=== PATIENT | female | born 1990 ===

== ENCOUNTER 2016-07-04 06:36 | Inpatient (IN) ==
[2016-07-04] MEDS ORDERED: MEPERIDINE 50 MG/1 ML VIAL IM PRN (07:43)
[2016-07-04] MEDS ORDERED: ONDANSETRON 4 MG/2 ML VIAL IV PRN (07:43)
[2016-07-04] MEDS ORDERED: LACTATED RINGERS 1,000 ML IV SCH (08:00)
[2016-07-04] MEDS ORDERED: OXYTOCIN/LR 20 UNIT/1,000 ML BAG IV SCH (08:00)
[2016-07-04 08:20] LABS: Basophils % 0.1 % (0.0-0.8); Eosinophils # 0.2 10*3/uL (0.0-0.87); Eosinophils % 1.5 % (0.00-10.9); Hematocrit 36.2 VOL% (35.7-47.0); Hemoglobin 11.4 GM/DL (12.0-16.0); Immature Granulocytes % 0.4 %; Immature Granulocytes Absolute 0.06 #; Lymphocytes # 2.6 10*3/uL (1.4-4.0); Lymphocytes % 18.5 % (21.3-54.2); Mean Corpuscular HGB Conc 31.5 GM/DL (32-36); Mean Corpuscular Hemoglobin 25 PG (27-34); Mean Corpuscular Volume 80.1 FL (87-102); Mean Platelet Volume 12.8 FL (9.6-12.0); Monocytes # 0.8 10*3/uL (0.11-0.8); Monocytes % 5.7 % (1.7-12.7); Neutrophils # 10.5 10*3/uL (1.4-7.4); Neutrophils % 73.8 % (38.7-73.9); Platelet Count 230 T/CUMM (130-400); Red Blood Count 4.52 MC/CUMM (3.8-5.5); Red Cell Distribution Width 14.6 % (9.3-17.3); White Blood Count 14.2 T/CUMM (4-12)
[2016-07-04 08:41] LABS: Alanine Aminotransferase 10 U/L (13-56); Albumin 2.7 G/DL (3.4-5.0); Alkaline Phosphatase 245 U/L (45-117); Aspartate Amino Transferase 13 U/L (0-37); Bilirubin,Total < 0.39 MG/DL (0.2-1.0); Blood Urea Nitrogen 5 MG/DL (7-18); Calcium 8.5 MG/DL (8.5-10.1); Glucose 74 MG/DL (74-106); Osmolality,Calculated 276.3 MOS/KG (273-304); Potassium 4.1 MMOL/L (3.5-5.1); Sodium 141 MMOL/L (136-145); Total Protein 6.4 G/DL (6.4-8.3)
--- NOTE | 2016-07-04 10:22 | OB/GYN History & Physical ---
History of Present Illness Chief complaint: Active Labor History of present illness: Ms. Matute is a 25 year old female who is a 5 para 4 labor. Her VINI is 07/12/2016 estimated gestational age of 38 and 6/7 weeks. She presents to the labor department in active labor. The risk and benefits have been thoroughly discussed with this patient and significant other, and plan of care has been discussed with Dr. Morrison, all parties are in agreement with plan. The patient received her care Damien Pearl in the [place] [facility]. She received routine care and her course was uneventful. labs: She is O+, rubella was immune, RPR is nonreactive, hepatitis B negative, HIV negative, and GBS culture negative. The patient has had 4 previous deliveries and the largest infant weighing 6 pounds and 3 ounces. She reported no complications with any of her Home Medications Medication Instructions Recorded Confirmed Type Multivitamin () [ 1 tablet PO DAILY 06/30/16 06/30/16 History Vitamin] Allergies Allergy/AdvReac Type Severity Reaction Status Date / Time No Known Allergies Allergy Verified 10/11/14 07:40 12 point system: reviewed and no additional remarkable complaints except as stated Medical,Surgical,& Family Hx - Medical History Medical History: noncontributory Reproductive: No history of: Ectopic , Complication - Surgical History Abdominal Surgeries: Surgical HX of: Appendectomy Reproductive Surgeries: Patient denies;: Gynecologic Surgery - Family History Family History: Reports;: Family Cancer (GRANDMOTHER, GRANDFATHER), Family Diabetes (UNCLE), Family Hypertension - Social History Smoking Status: Never smoker Frequency of Alcohol Use: None Type of Drug Use: None Marital Status: Single Lives With:: Significant Other Functional capacity: independent ambulation Exam CARPENTERS HELPER - Constitutional Vitals: Vital Signs Temp Pulse Resp BP Pulse Ox 07/04/16 07:58 97.6 F 66 18 137/82 99 General appearance: mild distress - Antepartum / Post Antpartum Exam Cervix -Dilatation: 5 cm Effacement: 70% Station: -1 Rupture: Intact Presentation: VTX Heart Rate: 140s Breast: bilateral: normal Abdomen obstetrics: Present: bowel sounds normal Vagina: Present: normal moisture Uterus exam: Present: enlarged Anus/Rectum: Present: normal perianal skin - Respiratory Respiratory exam: Present: clear to auscultation bilaterally - Cardiovascular Cardiovascular exam: Present: regular rate and rhythm - GI/Abdominal GI/Abdominal exam: Present: normal bowel sounds, soft - Extremities Exam Extremities exam: Present: normal inspection - Neurological Exam Neurological exam: Present: alert, oriented X3 - Psychiatric Psychiatric exam: Present: normal affect, normal mood - Skin Skin exam: Present: normal color, warm Assessment and Plan (1) Active labor at term Status: Acute Assessment and plan: Admit IV Fluids IV Pitocin per protocol Epidural if desired AROM Anticipate Current Visit: Yes Results - Labs CBC & BMP: 07/04/16 08:13 07/04/16 08:13
--- NOTE | 2016-07-04 11:11 | Event Note ---
HPI: Ms. Matute presented to the labor department in active labor. Risks and benefits were thoroughly discussed with the patient and significant other and plan of care was discussed with Dr. Morrison, all parties and plan. Stage I: The patient was admitted she received IV fluids and IV Pitocin per protocol. Artificial rupture membranes was performed with clear fluid noted. The patient progressed in labor with a CAT 1 tracing. She had an uneventful course of labor. Stage II: The patient was complete and complaining of depression strong desire to push. She pushed approximately 2 times after which time the infant's head was delivered. The mouth and nose was suctioned on the perineum. The remainder of the infant was delivered at 1104, a viable male was noted. Apgars were 9 at 1 minute and 9 at 5 minutes. The infant was placed on the mom' s abdomen for skin to skin bonding. weight was 7 pounds and 13 ounces. Cord pH was obtained and sent to the lab. Stage III: Spontaneous delivery of a Chapa placenta with a three-vessel cord noted. The placenta was further examined and appeared to be grossly intact. The vagina and cervix was inspected with no tears or lacerations noted. Estimated blood loss was approximately 120 mL. At the time of dictation mother and baby are both in stable condition.
[2016-07-04] MEDS ORDERED: DIPH/TET/ACEL PERT BOOSTER VACCINE 0.5 ML VIAL IM ONE (11:12)
[2016-07-04] MEDS ORDERED: RHO(D) IMMUNE GLOBULIN 300 MCG SYRINGE IM ONE (11:12)
[2016-07-04] MEDS ORDERED: HYDROCORTISONE 2.5% RECTAL CREAM 30 GM TUBE TOP PRN (11:12)
[2016-07-04] MEDS ORDERED: MEASLES/MUMPS/RUBELLA VACCINE 0.5 ML VIAL SUBCUT ONE (11:12)
[2016-07-04] MEDS ORDERED: WITCH HAZEL PADS 100/JAR TOP PRN (11:12)
[2016-07-04] MEDS ORDERED: OXYTOCIN/LR 20 UNIT/1,000 ML BAG IV ONE (11:12)
[2016-07-04] MEDS ORDERED: ACETAMINOPHEN 325 MG TABLET PO PRN (11:12)
[2016-07-04] MEDS ORDERED: BENZOCAINE 20%/MENTHOL 0.5% SPRAY 56 GM CAN TOP PRN (11:12)
[2016-07-04] MEDS ORDERED: BISACODYL 10 MG SUPP RECTAL PRN (11:12)
[2016-07-04] MEDS ORDERED: LANOLIN 50% CREAM 0.3 OZ TUBE TOP PRN (11:12)
[2016-07-04] MEDS ORDERED: ACETAMINOPHEN/CODEINE 300-30 MG TABLET PO PRN (11:13)
[2016-07-04] MEDS: oxyCODONE/ACETAMINOPHEN 5-325 MG TABLET PO PRN (11:30)
[2016-07-04] MEDS: DOCUSATE SODIUM 100 MG CAPSULE PO SCH (21:22)
[2016-07-05] MEDS: IBUPROFEN 800 MG TABLET PO PRN ×2 (01:15→14:35)
[2016-07-05] MEDS: oxyCODONE/ACETAMINOPHEN 5-325 MG TABLET PO PRN ×2 (01:15→14:35)
[2016-07-05 06:38] LABS: Basophils % 0.1 % (0.0-0.8); Eosinophils # 0.3 10*3/uL (0.0-0.87); Eosinophils % 1.9 % (0.00-10.9); Hematocrit 31.3 VOL% (35.7-47.0); Immature Granulocytes % 0.4 %; Immature Granulocytes Absolute 0.06 #; Lymphocytes # 3.3 10*3/uL (1.4-4.0); Lymphocytes % 21.6 % (21.3-54.2); Mean Corpuscular HGB Conc 31.9 GM/DL (32-36); Mean Corpuscular Hemoglobin 25 PG (27-34); Mean Corpuscular Volume 79.4 FL (87-102); Monocytes # 0.7 10*3/uL (0.11-0.8); Monocytes % 4.6 % (1.7-12.7); Neutrophils # 10.9 10*3/uL (1.4-7.4); Neutrophils % 71.4 % (38.7-73.9); Platelet Count 212 T/CUMM (130-400); Red Blood Count 3.94 MC/CUMM (3.8-5.5); Red Cell Distribution Width 14.7 % (9.3-17.3); White Blood Count 15.2 T/CUMM (4-12)
[2016-07-05] MEDS: DOCUSATE SODIUM 100 MG CAPSULE PO SCH ×2 (08:34→21:15)
--- NOTE | 2016-07-05 13:41 | OB/GYN Progress Note ---
Assessment and Plan (1) Active labor at term Status: Acute Assessment and plan: Admit IV Fluids IV Pitocin per protocol Epidural if desired AROM Anticipate Current Visit: Yes (2) Vaginal delivery Status: Acute Assessment and plan: Initiate routine orders. Current Visit: Yes CLIENT SUCCESS SPECIALIST - PN: Subj Interval history: Stable with no complaints. Bonding well with . Exam CLIENT SUCCESS SPECIALIST - Constitutional Vitals: Vital Signs Temp Pulse Resp BP Pulse Ox 07/05/16 11:56 97.0 F L 64 16 98/65 97 07/05/16 07:33 97.8 F 53 L 16 99/53 98 07/05/16 06:00 18 07/05/16 04:00 98.5 F 61 18 93/48 100 07/05/16 00:00 96.4 F L 63 20 105/70 96 07/04/16 22:00 20 07/04/16 19:45 98.5 F 70 20 107/60 98 07/04/16 16:40 66 18 109/63 98 07/04/16 15:40 69 18 108/60 98 07/04/16 15:10 65 18 102/56 98 07/04/16 14:40 97.1 F L 61 20 113/63 99 General appearance: no acute distress - Antepartum / Post Post Exam Breast: bilateral: normal Abdomen obstetrics: Present: bowel sounds normal Vulva: bilateral: normal Vagina: Present: normal moisture, discharge (light lochia rubra) Uterus exam: Present: enlarged (FF ML) Anus/Rectum: Present: normal perianal skin - Head Head exam: Present: normal inspection - Respiratory Respiratory exam: Present: clear to auscultation bilaterally - Cardiovascular Cardiovascular exam: Present: regular rate and rhythm - GI/Abdominal GI/Abdominal exam: Present: normal bowel sounds, soft - Extremities Exam Extremities exam: Present: normal inspection - Neurological Exam Neurological exam: Present: alert, oriented X3 - Psychiatric Psychiatric exam: Present: normal affect, normal mood - Skin Skin exam: Present: normal color, warm Results - Labs CBC & BMP: 07/05/16 06:21 07/04/16 08:13
--- NOTE | 2016-07-05 13:44 | Discharge Summary ---
Hospital Course - Hospital Course Hospital Course: Ms. Matute is a 25-year-old female who presented labor department in active labor. She subsequently delivered a viable with no complications. She is followed a normal course and she has not Weyl. She is born without difficulty. Her fundus is firm and midline. Her perineum is intact with no edema. Her vital signs lab values are stable. She is bonding well with her infant. Her perineum is intact with no edema. She will be discharged to home prescriptions for pain follow-up appointment in our office. Diagnosis - Discharge Diagnosis (1) Active labor at term Status: Acute (2) Vaginal delivery Status: Acute Specialty Discharge - Follow Up or Referrals Follow up with: Asael Morrison MD [Physician] - (Call Dr. Morrison' Office Friday07/08/16 to make a 6 week follow up appt.) Discharge Plan - Discharge Data Disposition: Disch To Home/Self Care Condition at Discharge: Stable Discharge Diet: advance to your usual diet, regular diet Activity: resume usual activities as tolerated Hygiene: may shower Weight Bearing at Discharge: weight bear as tolerated Driving: no restrictions Contact your physician if you experience:: fever over 101, pain uncontrolled by pain medications - Discharge Medications New Acetamin/Codeine 300-30 Tab [Tylenol/Codeine #3] 2 tablet PO Q4H PRN #30 tablet PRN Reason: Pain Mild (1-3) Ferrous Sulfate Tab [Feosol Original Tab] 325 mg PO BID #60 tablet Ibuprofen Tab [Motrin Tab] 800 mg PO Q6H PRN #30 tablet PRN Reason: Pain Moderate (4-7) No Action Multivitamin () [ Vitamin] 1 tablet PO DAILY - Follow Up or Referral Follow Up: Asael Morrison MD [Physician] - (Call Dr. Morrison' Office Friday07/08/16 to make a 6 week follow up appt.) - Forms/Instructions Instructions: Acetaminophen/Codeine (By mouth), Depression (GEN), Perineal Care (DC), Vaginal Delivery (DC), Bleeding (DC) Exam - Constitutional Vitals: Period Temp Pulse Resp BP Sys/Garcia Pulse Ox Last 24 Hr 96.7 F-98.9 F 64-86 16-20 90-126/56-81 97-99 General appearance: no acute distress - Respiratory Respiratory exam: Present: clear to auscultation bilaterally - Cardiovascular Cardiovascular exam: Present: regular rate and rhythm - GI/Abdominal GI/Abdominal exam: Present: normal bowel sounds, soft - Extremities Exam Extremities exam: Present: normal inspection - Neurological Exam Neurological exam: Present: alert, oriented X3 - Psychiatric Psychiatric exam: Present: normal affect, normal mood - Skin Skin exam: Present: normal color, warm DS: Provider Date of admission: 07/04/16 07:20 Primary care physician: Damien Gasca MD Attending physician on admission: Asael Morrison MD Consults: 07/04/16 07:43 Consult to Anesthesiology [CONS] Routine Consulting Provider: Reason for Anesthesiology: Epidural Consult Comment: Epidural for pain managment 07/04/16 11:12 Consult to Boat Canvas Maker And Installer [CONS] Routine Consult Boat Canvas Maker And Installer: Breast Feeding Discharging clinician: Melany Zuñiga CNM Expected date of discharge: 07/06/16
[2016-07-05] MEDS: FERROUS SULFATE 325 MG TABLET PO SCH ×2 (21:15→21:34)
[2016-07-06] MEDS: oxyCODONE/ACETAMINOPHEN 5-325 MG TABLET PO PRN (05:00)
[2016-07-06 07:39] VITALS: BP 108/59
[2016-07-06] MEDS: FERROUS SULFATE 325 MG TABLET PO SCH (08:52)
[2016-07-06] MEDS: IBUPROFEN 800 MG TABLET PO PRN ×2 (08:52)
[2016-07-06] MEDS: DOCUSATE SODIUM 100 MG CAPSULE PO SCH (08:52)
== END 2016-07-06 12:40 | disposition home or self-care (01) | DRG 560 ==
LOC: N.LDOUT 06:36 → N.LD 06:40 → N.OB 14:34
PROVIDERS: ADMIT Obstetrics & Gynecology; ATTEND Obstetrics & Gynecology

== ENCOUNTER 2019-02-22 05:44 | Inpatient (IN) ==
[2019-02-22 06:35] LABS: Apearance,Urine CLEAR (Clear); Bilirubin,Urine Negative (Negative); Blood, Urine Negative (Negative); Glucose,Urine (UA) Negative (Negative); Ketones,Urine Negative (Negative); Mucus,Urine Occasional /LPF (Occasional); Nitrite,Urine Negative (Negative); Protein,Urine Negative; RBC,Urine 1 /HPF (0-4); Squamous Epithelial Cell,Urine Occasional /HPF (0-10); Urine Color Straw (Yellow); Urine Urobilinogen < 2.0 EU/DL (0.2-1.0); WBC,Urine 1 /HPF (0-6)
[2019-02-22] MEDS ORDERED: ONDANSETRON 4 MG/2 ML VIAL IV PRN ×2 (11:33→19:10)
[2019-02-22] MEDS ORDERED: MEPERIDINE 50 MG/1 ML VIAL IM PRN (11:33)
[2019-02-22 11:58] LABS: Basophils % 0.2 % (0.0-0.8); Eosinophils # 0.3 10*3/uL (0.0-0.87); Eosinophils % 3.5 % (0.00-10.9); Hematocrit 37.3 VOL% (35.7-47.0); Hemoglobin 11.9 GM/DL (12.0-16.0); Immature Granulocytes % 0.4 %; Immature Granulocytes Absolute 0.04 #; Lymphocytes # 2.2 10*3/uL (1.4-4.0); Lymphocytes % 24.6 % (21.3-54.2); Mean Corpuscular HGB Conc 31.9 GM/DL (32-36); Mean Corpuscular Volume 84.2 FL (87-102); Mean Platelet Volume 11.7 FL (9.6-12.0); Monocytes % 5.1 % (1.7-12.7); Neutrophils % 66.2 % (38.7-73.9); Platelet Count 224 T/CUMM (130-400); Red Blood Count 4.43 MC/CUMM (3.8-5.5); Red Cell Distribution Width 13.3 % (9.3-17.3); White Blood Count 9.1 T/CUMM (4-12)
[2019-02-22] MEDS ORDERED: LACTATED RINGERS 1,000 ML IV SCH (12:00)
[2019-02-22] MEDS ORDERED: OXYTOCIN/LR 20 UNIT/1,000 ML BAG IV SCH (12:00)
[2019-02-22 12:19] LABS: Alanine Aminotransferase 11 U/L (13-56); Albumin 2.6 G/DL (3.4-5.0); Alkaline Phosphatase 288 U/L (45-117); Aspartate Amino Transferase 12 U/L (0-37); Bilirubin,Total < 0.39 MG/DL (0.2-1.0); Blood Urea Nitrogen 7 MG/DL (7-18); Calcium 8.3 MG/DL (8.5-10.1); Estimated Glom Filtration Rate 131 ML/MIN; Glucose 68 MG/DL (74-106); Osmolality,Calculated 268.8 MOS/KG (273-304); Total Protein 6.7 G/DL (6.4-8.3); Uric Acid 4.3 MG/DL (2.6-6.0)
[2019-02-22] MEDS: BUTORPHANOL 2 MG/ML VIAL IV PRN ×2 (14:01→17:36)
[2019-02-22] MEDS ORDERED: TRANEXAMIC ACID 1,000 MG/10 ML VIAL ONE (17:53)
[2019-02-22] MEDS ORDERED: METHYLERGONOVINE 0.2 MG/1 ML AMP ONE (17:53)
[2019-02-22] MEDS ORDERED: miSOPROStoL 200 MCG TABLET ONE (17:53)
[2019-02-22] MEDS ORDERED: CARBOPROST TROMETHAMINE 250 MCG/ML AMP IM ONE (17:53)
[2019-02-22] MEDS ORDERED: LIDOCAINE 1% 50 ML VIAL ONE (17:53)
[2019-02-22] MEDS ORDERED: MEPERIDINE 50 MG/1 ML VIAL IV PRN (18:33)
[2019-02-22 19:09] LABS: Cord Arterial Blood HCO3 24.4 MMOL/L
[2019-02-22] MEDS ORDERED: HYDROCORTISONE 2.5% RECTAL CREAM 30 GM TUBE TOP PRN (19:10)
[2019-02-22] MEDS ORDERED: WITCH HAZEL PADS 100/JAR TOP PRN (19:10)
[2019-02-22] MEDS ORDERED: ACETAMINOPHEN 325 MG TABLET PO PRN (19:10)
[2019-02-22] MEDS ORDERED: BENZOCAINE 20%/MENTHOL 0.5% SPRAY 56 GM CAN TOP PRN (19:10)
[2019-02-22] MEDS ORDERED: OXYTOCIN/LR 20 UNIT/1,000 ML BAG IV ONE (19:10)
[2019-02-22] MEDS ORDERED: DIPH/TET/ACEL PERT BOOSTER VACCINE 0.5 ML VIAL IM ONE (19:10)
[2019-02-22] MEDS ORDERED: RHO(D) IMMUNE GLOBULIN 300 MCG SYRINGE IM ONE (19:10)
[2019-02-22] MEDS ORDERED: MEASLES/MUMPS/RUBELLA VACCINE 0.5 ML VIAL SUBCUT ONE (19:10)
[2019-02-22] MEDS ORDERED: LANOLIN 50% CREAM 0.3 OZ TUBE TOP PRN (19:10)
[2019-02-22] MEDS ORDERED: BISACODYL 10 MG SUPP RECTAL PRN (19:10)
[2019-02-22] MEDS ORDERED: oxyCODONE/ACETAMINOPHEN 5-325 MG TABLET PO PRN ×2 (19:10)
[2019-02-22 19:12] LABS: Cord Venous Blood HCO3 24.5 MMOL/L; Cord Venous Blood PCO2 53.2 MMHG; Cord Venous Blood PO2 28.3 MMHG
[2019-02-23] MEDS: IBUPROFEN 800 MG TABLET PO PRN ×3 (02:28→20:20)
[2019-02-23 05:52] LABS: Basophils % 0.1 % (0.0-0.8); Eosinophils # 0.2 10*3/uL (0.0-0.87); Eosinophils % 1.3 % (0.00-10.9); Hematocrit 33.3 VOL% (35.7-47.0); Hemoglobin 10.9 GM/DL (12.0-16.0); Immature Granulocytes % 0.4 %; Immature Granulocytes Absolute 0.06 #; Lymphocytes # 2.4 10*3/uL (1.4-4.0); Mean Corpuscular HGB Conc 32.7 GM/DL (32-36); Mean Corpuscular Volume 82.4 FL (87-102); Mean Platelet Volume 12.2 FL (9.6-12.0); Neutrophils % 75.2 % (38.7-73.9); Platelet Count 212 T/CUMM (130-400); Red Blood Count 4.04 MC/CUMM (3.8-5.5); Red Cell Distribution Width 13.3 % (9.3-17.3); White Blood Count 14.1 T/CUMM (4-12)
[2019-02-23] MEDS: DOCUSATE SODIUM 100 MG CAPSULE PO SCH ×2 (09:50→20:20)
[2019-02-24 07:17] VITALS: BP 103/58
[2019-02-24] MEDS ORDERED: INFLUENZA VIRUS VACCINE 0.5 ML SYRINGE IM ONE ×2 (09:00→12:02)
[2019-02-24] MEDS: DOCUSATE SODIUM 100 MG CAPSULE PO SCH (10:28)
== END 2019-02-24 12:15 | disposition home or self-care (01) | DRG 560 ==
LOC: N.LDOUT 05:44 → N.LD 05:45 → N.OB 21:50
PROVIDERS: ADMIT Obstetrics & Gynecology; ATTEND Obstetrics & Gynecology